=== PATIENT | male | born 1990 | race Caucasian/White ===

== ENCOUNTER 2023-08-24 09:26 | Emergency (ER) | payer OTHER, SELFPAY ==
[2023-08-24 09:28] VITALS: BP 156/87; PULSE 92; RESP 18; TEMP 37.2; O2SAT 98; BMI 26.2
--- NOTE | 2023-08-24 09:41 | EDS_ITS ---
HPI History of Present Illness Chief Complaint: Ear Problem Informant: patient Narrative Narrative: 33-year-old male presented to the emergency room with left ear pain. Patient notes left ear pain for couple days. He notes pain with movement of the ear. He went to urgent care yesterday and states that they tried to flush his ear and sent him home on eardrops (polymyxin with hydrocortisone). He states he does not feel that the drops are gone into his ear. He is unsure if there has been any ear drainage. No fevers. No recent swimming. He occasionally wears earplugs. No significant nasal congestion or rhinorrhea. No sore throat. He is not a diabetic. PFSH PFSH Allergy/AdvReac Type Severity Reaction Status Date / Time cefaclor (From Ceclor) Allergy Intermediate Hives Verified 08/24/23 09:27 amoxicillin (From Augmentin) Allergy Mild Hives Verified 08/24/23 09:27 clavulanic acid (From Allergy Mild Hives Verified 08/24/23 09:27 Augmentin) ROS ROS ED Constitutional Constitutional ED: Denies chills, fever(s) or weight loss Eyes Eyes: Denies change in vision or diplopia ENT ENT ED: Reports ear pain; Denies rhinorrhea or sore throat Cardiovascular Cardiovascular: Denies chest pain, orthopnea, palpitations or racing heartbeat Respiratory/Chest Respiratory/Chest: Denies cough, dyspnea or orthopnea Gastrointestinal Gastrointestinal: Denies abdominal pain, diarrhea, nausea or vomiting Genitourinary Genitourinary ED: Denies dysuria, hematuria or urinary frequency Musculoskeletal Musculoskeletal: Denies arthralgias or myalgias Integumentary Denies abscess or rash Neurologic Neurologic: Denies headache(s) or weakness Psychiatric Psychiatric: Denies anxiety, depression, suicidal ideation or suicidal thoughts Endocrine Endocrinology: Denies polydipsia, polyphagia or polyuria Allergic/Immunologic Allergic/Immunologic ED: Denies mouth swelling, tongue swelling or urticaria EXAM Physical Exam Const Vital Signs: 08/24/23 09:28 Temperature 98.9 F Temperature Source Temporal Pulse Rate 92 Respiratory Rate 18 Blood Pressure 156/87 H Blood Pressure Mean 110 Pulse Ox 98 Oxygen Delivery Method Room Air Positive well nourished and well developed General Appearance ED: well developed HEENT Reports normocephalic, head/scalp atraumatic and moist mucous membranes HEENT Narrative: Patient has pain with movement of the left pinna. There is left ear canal swelling and debris. I am able to visualize the tympanic membrane. It is not erythematous. I do not see an obvious perforation but I cannot visualize the entire membrane. There is some drainage from the ear canal onto the external ear. There is no significant ears welling or posterior/mastoid tenderness/erythema. Eyes PERRL and EOMs intact bilaterally Neck no lymphadenopathy, supple and no JVD Resp normal respiratory effort and clear to auscultation bilaterally Cardio regular rate, regular rhythm and no murmurs GI normal to inspection, nondistended, normoactive bowel sounds and non-tender Palpation: soft Back/Spine no CVA tenderness and normal ROM Extremity normal to inspection General Extremety ED: Negative for edema General Extremity: Negative for edema Neuro oriented x3 and CN's II-XII intact bilaterally Sensorium / Orientation: alert Motor Exam: strength 5/5 throughout Psych mental status grossly normal Mood & Affect: Negative for depressed or tearful Skin no rashes or lesions noted and no wounds MDM MDM MDM Narrative Medical decision making narrative: Differential diagnosis includes otitis externa otitis media malignant otitis externa/mastoiditis foreign body tympanic membrane rupture I explained to the patient that he needs to lay on his side and placed the eardrops and lay in that position for 5 to 10 minutes to allow the medicine to go into the ear canal. I do not feel that he needs it wet because I can visualize the tympanic membrane. I went ahead and placed the drops for the patient as he is not yet put them in this morning. Would recommend Tylenol Motrin for pain. Follow-up with ENT if not improving History & Record Review Discussion w/independent historian: Patient Discharge Plan Triage Chief Complaint: Ear Problem ED Provider: Wilmar Rea Dx/Rx/DC Orders Primary Care Provider: NOT,DEFINED Referrals: NOT,DEFINED [Primary Care Provider] - Print Language: Spanish
[2023-08-24 10:03] VITALS: BP 124/66; PULSE 71; RESP 15; TEMP 36.4; O2SAT 99
== END 2023-08-24 10:06 | disposition home or self-care (01) ==
PROVIDERS: Emergency Provider Emergency Medicine; Visit Provider Emergency Medicine
DX: H92.02 Otalgia, left ear (principal)
CPT/HCPCS: 99282